=== PATIENT | male | born 1960 | race Caucasian/White ===

== ENCOUNTER → 2017-11-03 | Outpatient (CLI) | payer OTHER ==
[2017-10-31 12:47] LABS: BLOOD UREA NITROGEN 18 mg/dl (7-18); CREATININE 0.93 mg/dl (0.60-1.40)
[~2017-11-03] MED LIST: COEN1CAP37 PO; CPR/500 PO; GLUCTAB7 PO; GLYCDRO6 OP; HYDR-5688 PO; KRIL1CAP7 PO; LISI-725 PO; MELO-84 PO; MULT-923 PO; OPTIRAY 320 IV PRN; PRLSR20 PO; TAMS0.4C38 PO
--- NOTE | 2017-11-03 17:56 | DIAGNOSTIC IMAGING REPORT ---
ABDOMEN AND PELVIS CT WITH AND WITHOUT INTRAVENOUS CONTRAST, RENAL PROTOCOL HISTORY: N20.0 TemmgxgenolkgfjY92.9 Renal eyrswlX14.1 Renal cystNPR per K TECHNIQUE: Multiaxial CT images of the abdomen and pelvis performed both before and after the intravenous administration of contrast to evaluate the kidneys. COMPARISON STUDY: Abdomen and pelvis CT 06/18/2016. Renal ultrasound 09/09/2016. FINDINGS: The lung bases are clear. No renal or ureteral calculi. No hydronephrosis. No suspicious filling defects seen within the opacified bilateral renal collecting systems, ureters, or bladder. Of note, the distal ureters and bladder are not included on the delayed images. Multiple hypodense bilateral renal lesions. Dominant lesion within the lower pole the left kidney measures 2.1 cm. This is consistent with a cyst. The remaining lesions are subcentimeter in size and are technically too small to characterize but statistically represent cysts. 8 mm hypodense focus within the lower pole the right kidney is adjacent to a focal area of cortical scarring. Therefore, this may represent scarring. However, this is also technically too small to characterize. No suspicious lytic or blastic osseous lesions. Small hiatus hernia. Mild hepatic steatosis. Normal gallbladder, pancreas, and adrenal glands. No retroperitoneal lymphadenopathy. The bladder is not well-distended but appears unremarkable. Colonic diverticulosis. No bowel wall thickening or obstruction. Normal appendix. IMPRESSION: 1. No renal stones or hydronephrosis. 2. The visualized opacified renal collecting systems and proximal to mid ureters show no suspicious filling defects. 3. Multiple bilateral renal hypodense lesions. The majority of these are subcentimeter in size and therefore technically too small to characterize. No definite enhancing renal lesions identified. Dominant 2.1 cm lesion within the lower pole of the left kidney is consistent with a cyst. Electronically signed by: Scooter Humphrey M.D. 11/03/2017 5:55 PM Dictated Date/Time: 11/03/2017 5:43 PM
== END | disposition home or self-care (01) ==
LOC: C.CTS 15:53
PROVIDERS: ATTEND Urology
DX: N20.0 Calculus of kidney (principal); N28.9 Disorder of kidney and ureter, unspecified; N28.1 Cyst of kidney, acquired